=== PATIENT | male | born 1955 | race Caucasian/White ===

== ENCOUNTER 2023-06-02 07:12 | Day surgery (SDC) | payer MEDICARE ==
[~2023-06-02] VITALS: Ht 182.9 cm; Wt 113.4 kg
[~2023-06-02 07:12] MED LIST: ASPIRIN 81 LOW81 MG; B-12100 MCG PO; GLUCOSAMINE CHO1 CA3; IRON 100 PLUS PO; LEVOTHYROXIN50 MCG PO; LYRICA150 MG PO; MAGNESIUM500 M1 PO; PRAVASTATIN SOD10 MG PO; VITAMIN C100 M1 PO; VITAMIN D31000 UNI1 PO; ZESTRIL5 M1 PO
[2023-06-02] MEDS ORDERED: FAMOTIDINE 10MG/ML 2ML SDV IV ONE (07:17)
[2023-06-02] MEDS ORDERED: LACTATED RINGER'S 1,000 ML IV ONE (07:18)
[2023-06-02 09:41] VITALS: BP 133/89
[2023-06-02] MEDS ORDERED: LIDOCAINE HCL 2% 2ML SDV IV ONE (16:41)
[2023-06-02] MEDS ORDERED: GLYCOPYRROLATE 0.2 MG/ML IV ONE (16:41)
[2023-06-02] MEDS ORDERED: PROPOFOL 200 MG/20 ML VIAL IV ONE (16:41)
== END 2023-06-02 10:04 | disposition home or self-care (01) ==
LOC: ENDO 07:12
PROVIDERS: ATTEND Surgery
PROC: 0DJD8ZZ Inspection of Lower Intestinal Tract, Via Natural or Artificial Opening Endoscopic (ICD-10-PCS; principal; 2023-06-02)
DX: Z12.11 Encounter for screening for malignant neoplasm of colon (principal); K57.30 Diverticulosis of large intestine without perforation or abscess without bleeding; K64.8 Other hemorrhoids; E78.5 Hyperlipidemia, unspecified